=== PATIENT | female | born 1970 | race Two or more races ===

== ENCOUNTER 2016-11-29 11:13 | Inpatient (IN) | payer SELFPAY ==
[2016-11-29] MEDS ORDERED: PROMETHAZINE 25 MG/ML VIAL IV ONE (11:32)
[2016-11-29] MEDS: NS 1,000 ML IV SCH ×2 (11:40→12:11)
[2016-11-29 11:51] LABS: AUTOMATED BASOPHIL 0.3 % (0-2); AUTOMATED EOSINOPHIL 0.1 % (0-5); AUTOMATED LYMPH 9.4 % (17-44); AUTOMATED MONOCYTE 7.2 % (3-10); MPV 8.5 fL (7.4-10.4)
[2016-11-29 12:06] LABS: BLOOD UREA NITROGEN 19 MG/DL (7-17); CALC CORRECTED 9.3 MG/DL (8.4-10.2); CALCIUM 8.9 MG/DL (8.4-10.2); CALCULATED OSMOLALITY 264 MOs/Kg (270-290); CHLORIDE 93 mEq/L (98-107); GLUCOSE 219 MG/DL (70-99); SODIUM LEVEL 132 mEq/L (137-146); TOTAL PROTEIN 8.2 G/DL (6.3-8.2)
[2016-11-29 12:48] LABS: LEUKOCYTES/URINE 2+ (NEGATIVE); NITRITE/URINE NEG (NEGATIVE); RBC/URINE TNTC (0-5); URINE OCCULT BLOOD 3+ (NEG/TRACE); WBC/URINE TNTC (0-5)
--- NOTE | 2016-11-29 12:50 | EDPRACDOC ---
- General Information Information Source: Patient, Charter Representative - History of Present Illness Onset: HPI: PT PRESENTS TODAY N/V, FEVER/CHILLS AND GENERAL MALAISE X 3 DAYS. PT STATES SHE HAS BEEN CONTROLLING BODY ACHES WITH TYLENOL UNTIL TODAY. TODAY HER MALAISE/VOMITING HAS INTENSIFIED AND SHE IS UNABLE TO KEEP DOWN OTC MEDS. PT ACTIVELY VOMITING ON MY ASSESSMENT AND APPEARS ILL, BUT NON-TOXIC. Shortness of Breath: None Relevant History of: Reports: None Fever Severity/Quality: Reports: subjective Ear Symptoms: Reports: None Associated Signs & Symptoms: Reports: Fever, Nausea, Vomiting, Myalgia Oral Intake: Decreased Urinary Output: Decreased <Brittney Bain - Last Filed: 11/29/16 13:37> <Devon Owens - Last Filed: 11/29/16 14:25> - General Information Chief Complaint: Nausea,Vomiting,Diarrhea Stated Complaint: FEVER; CHILLS Time Seen by Provider: 11/29/16 11:26 Home Medications: Home Medications Glipizide 5 mg PO DAILY #90 tablet 11/08/16 Metformin HCl 500 mg PO BID #180 tab 11/08/16 Allergies/Adverse Reactions: Allergies Allergy/AdvReac Type Severity Reaction Status Date / Time Penicillins Allergy Intermediate Rash-Genera Verified 11/29/16 11:22 lized - Treatment Prior to ED Arrival Reported Medications/Treatment ROTARY CUTTER Ibuprofen/Acetaminophen (Dose/ TYLENOL X2-0000 Time) <Brittney Bain - Last Filed: 11/29/16 13:37> - Treatment Prior to ED Arrival Reported Medications/Treatment ROTARY CUTTER Ibuprofen/Acetaminophen (Dose/ TYLENOL X2-0000 Time) <Devon Owens - Last Filed: 11/29/16 14:25> ED Past Medical History - History Reviewed Yes Nurses notes reviewed and agree except as marked - Patient Medical History Psychological History: Denies: Depression, Substance Use Disorder Systemic History: Reports: Diabetes Surgical History: Reports: Other () - Social Medical History Smoking Status: Never smoker Social History: Denies: Substance Use Disorder <Brittney Bain - Last Filed: 11/29/16 13:37> EDM Review of Systems - Review of Systems ROS Negative Except as Marked: Yes All systems reviewed and were negative except as marked Constitutional: Chills, Fever, Fatigue, Loss of Appetite Ears: No Symptoms Reported Throat: No Symptoms Reported Nose: No Symptoms Reported Respiratory: No Symptoms Reported Cardiovascular: No Symptoms Reported Gastrointestinal: Nausea, Vomiting Genitourinary: No Symptoms Reported Neurological: No Symptoms Reported Musculoskeletal: No Symptoms Reported Integumentary: No Symptoms Reported <Brittney Bain - Last Filed: 11/29/16 13:37> - Physical Exam Constitutional: Alert, Distress Oriented to: Time, Person, Place Last recorded Vital Signs: Last Vital Signs Temp 98.0 F 11/29/16 11:21 Pulse 116 11/29/16 12:25 Resp 20 11/29/16 12:25 BP 117/64 11/29/16 12:25 Pulse Ox 98 11/29/16 12:25 Oxygen Pulse Oxygen Saturation 98 O2 Device Room Air Oxygen Flow Rate Fraction of Inspired Oxygen ( FIO2) - HEENT Head: Normal Eye Exam: Normal Neck: Normal, Denies Pain, Midline - Respiratory/Cardiovascular Respiratory: Normal - CTA Cardiovascular: Tachycardia - GI Palpation: Normal Tenderness: Non tender - Musculoskeletal Back: Normal Extremities: Normal - Integumentary Skin: Normal Lymphatics: Normal - Neurologic Cerebellar: Normal Mood Description: Normal Thought: Coherent Perception: Normal <Brittney Bain - Last Filed: 11/29/16 13:37> - Physical Exam Last recorded Vital Signs: Last Vital Signs Temp 101.1 F H 11/29/16 12:56 Pulse 125 H 11/29/16 12:56 Resp 20 11/29/16 12:56 BP 120/56 L 11/29/16 12:56 Pulse Ox 98 11/29/16 12:56 Oxygen Pulse Oxygen Saturation 98 O2 Device Room Air Oxygen Flow Rate Fraction of Inspired Oxygen ( FIO2) <Devon Owens - Last Filed: 11/29/16 14:25> - Re-evaluation Re-evaluation 1 Re-evaluation Time: 13:37 PT CONTINUES TO FEEL VERY ILL; PT IS SHAKING; PT WAS RECENTLY ADMITTED TO HOSPITAL FOR PYELONEPHRITIS. - Results 11/29/16 11:42 11/29/16 11:42 WBC 11.9 xk/uL (3.8-10.8) H 11/29/16 11:42 RBC 3.20 xM/uL (4.20-5.40) L 11/29/16 11:42 Hgb 10.0 g/dL (12.0-16.0) L 11/29/16 11:42 Hct 28.9 % (36-47) L 11/29/16 11:42 MCV 90 fL (81-99) 11/29/16 11:42 MCH 31.3 pg (27-32) 11/29/16 11:42 MCHC 34.7 g/dl (33-36) 11/29/16 11:42 RDW 13.7 % (11.5-14.5) 11/29/16 11:42 Plt Count 174 xk/uL (130-400) 11/29/16 11:42 MPV 8.5 fL (7.4-10.4) 11/29/16 11:42 Neut % (Auto) 83.0 % (45-76) H 11/29/16 11:42 Lymph % (Auto) 9.4 % (17-44) L 11/29/16 11:42 [place] % (Auto) 7.2 % (3-10) 11/29/16 11:42 Eos % (Auto) 0.1 % (0-5) 11/29/16 11:42 Baso % (Auto) 0.3 % (0-2) 11/29/16 11:42 Absolute Neuts (auto) 9.88 xk/uL (1.7-8.2) H 11/29/16 11:42 Absolute Lymphs (auto) 1.07 xk/uL (0.65-4.75) 11/29/16 11:42 Sodium 132 mEq/L (137-146) L 11/29/16 11:42 Potassium 4.2 mEq/L (3.5-5.1) 11/29/16 11:42 Chloride 93 mEq/L (98-107) L 11/29/16 11:42 Carbon Dioxide 26 mMOL/L (22-33) 11/29/16 11:42 Anion Gap 17 mEq/L (8-16) H 11/29/16 11:42 BUN 19 MG/DL (7-17) H 11/29/16 11:42 Creatinine 0.80 MG/DL (0.52-1.04) 11/29/16 11:42 Estimated GFR (MDRD) > 60 mL/min (>=60) 11/29/16 11:42 Glucose 219 MG/DL (70-99) H 11/29/16 11:42 POC Capillary Glucose 197 MG/DL (70-99) H 11/29/16 11:20 Calculated Osmolality 264 MOs/Kg (270-290) L 11/29/16 11:42 Calcium 8.9 MG/DL (8.4-10.2) 11/29/16 11:42 Corrected Calcium 9.3 MG/DL (8.4-10.2) 11/29/16 11:42 Total Bilirubin 0.8 MG/DL (0.2-1.3) 11/29/16 11:42 AST 24 IU/L (14-36) 11/29/16 11:42 ALT 26 IU/L (9-52) 11/29/16 11:42 Alkaline Phosphatase 202 IU/L (38-126) H 11/29/16 11:42 Total Protein 8.2 G/DL (6.3-8.2) 11/29/16 11:42 Albumin 3.6 G/DL (3.5-5.0) 11/29/16 11:42 Lab Results 11/29/16 11/29/16 11/29/16 11:42 11:42 11:20 WBC 11.9 H RBC 3.20 L Hgb 10.0 L Hct 28.9 L MCV 90 MCH 31.3 MCHC 34.7 RDW 13.7 Plt Count 174 MPV 8.5 Neut % (Auto) 83.0 H Lymph % (Auto) 9.4 L [place] % (Auto) 7.2 Eos % (Auto) 0.1 Baso % (Auto) 0.3 Absolute Neuts (auto) 9.88 H Absolute Lymphs (auto) 1.07 Sodium 132 L Potassium 4.2 Chloride 93 L Carbon Dioxide 26 Anion Gap 17 H BUN 19 H Creatinine 0.80 Estimated GFR (MDRD) > 60 Glucose 219 H POC Capillary Glucose 197 H Calculated Osmolality 264 L Calcium 8.9 Corrected Calcium 9.3 Total Bilirubin 0.8 AST 24 ALT 26 Alkaline Phosphatase 202 H Total Protein 8.2 Albumin 3.6 <Brittney Bain - Last Filed: 11/29/16 13:37> - Results 11/29/16 11:42 11/29/16 11:42 WBC 11.9 xk/uL (3.8-10.8) H 11/29/16 11:42 RBC 3.20 xM/uL (4.20-5.40) L 11/29/16 11:42 Hgb 10.0 g/dL (12.0-16.0) L 11/29/16 11:42 Hct 28.9 % (36-47) L 11/29/16 11:42 MCV 90 fL (81-99) 11/29/16 11:42 MCH 31.3 pg (27-32) 11/29/16 11:42 MCHC 34.7 g/dl (33-36) 11/29/16 11:42 RDW 13.7 % (11.5-14.5) 11/29/16 11:42 Plt Count 174 xk/uL (130-400) 11/29/16 11:42 MPV 8.5 fL (7.4-10.4) 11/29/16 11:42 Neut % (Auto) 83.0 % (45-76) H 11/29/16 11:42 Lymph % (Auto) 9.4 % (17-44) L 11/29/16 11:42 [place] % (Auto) 7.2 % (3-10) 11/29/16 11:42 Eos % (Auto) 0.1 % (0-5) 11/29/16 11:42 Baso % (Auto) 0.3 % (0-2) 11/29/16 11:42 Absolute Neuts (auto) 9.88 xk/uL (1.7-8.2) H 11/29/16 11:42 Absolute Lymphs (auto) 1.07 xk/uL (0.65-4.75) 11/29/16 11:42 Sodium 132 mEq/L (137-146) L 11/29/16 11:42 Potassium 4.2 mEq/L (3.5-5.1) 11/29/16 11:42 Chloride 93 mEq/L (98-107) L 11/29/16 11:42 Carbon Dioxide 26 mMOL/L (22-33) 11/29/16 11:42 Anion Gap 17 mEq/L (8-16) H 11/29/16 11:42 BUN 19 MG/DL (7-17) H 11/29/16 11:42 Creatinine 0.80 MG/DL (0.52-1.04) 11/29/16 11:42 Estimated GFR (MDRD) > 60 mL/min (>=60) 11/29/16 11:42 Glucose 219 MG/DL (70-99) H 11/29/16 11:42 POC Capillary Glucose 197 MG/DL (70-99) H 11/29/16 11:20 Calculated Osmolality 264 MOs/Kg (270-290) L 11/29/16 11:42 Calcium 8.9 MG/DL (8.4-10.2) 11/29/16 11:42 Corrected Calcium 9.3 MG/DL (8.4-10.2) 11/29/16 11:42 Total Bilirubin 0.8 MG/DL (0.2-1.3) 11/29/16 11:42 AST 24 IU/L (14-36) 11/29/16 11:42 ALT 26 IU/L (9-52) 11/29/16 11:42 Alkaline Phosphatase 202 IU/L (38-126) H 11/29/16 11:42 Total Protein 8.2 G/DL (6.3-8.2) 11/29/16 11:42 Albumin 3.6 G/DL (3.5-5.0) 11/29/16 11:42 Urine Color Yellow 11/29/16 12:22 Urine Clarity Sl cldy 11/29/16 12:22 Urine pH 7.0 (5.0-8.0) 11/29/16 12:22 Ur Specific [place] 1.005 (1.003-1.035) 11/29/16 12:22 Urine Protein 2+ (NEG/TRACE) H 11/29/16 12:22 Urine Glucose (UA) Trace (NEGATIVE) 11/29/16 12:22 Urine Ketones Neg (NEGATIVE) 11/29/16 12:22 Urine Occult Blood 3+ (NEG/TRACE) H 11/29/16 12:22 Urine Nitrite Neg (NEGATIVE) 11/29/16 12:22 Urine Bilirubin Neg (NEGATIVE) 11/29/16 12:22 Urine Urobilinogen <2.0 MG/DL (0-1) 11/29/16 12:22 Ur Leukocyte Esterase 2+ (NEGATIVE) H 11/29/16 12:22 Urine RBC Tntc (0-5) H 11/29/16 12:22 Urine WBC Tntc (0-5) H 11/29/16 12:22 Urine WBC Clumps Present (NONE) H 11/29/16 12:22 Ur Epithelial Cells 3+ 11/29/16 12:22 Urine Bacteria 3+ (NEG/FEW) H 11/29/16 12:22 Microbiology 11/29/16 12:25 Influenza Type A Antigen Screen - Final N/P - Naso/Pharyngeal NEGATIVE Please note: A NEGATIVE result does not exclude an influenza virus infection. It is a presumptive result and, if required, confirmation should be done using either a virus culture or an FDA-cleared influenza A&B molecular assay. ("NORMAL" value = "NEGATIVE".) Influenza Type B Antigen Screen - Final NEGATIVE Please note: A NEGATIVE result does not exclude an influenza virus infection. It is a presumptive result and, if required, confirmation should be done using either a virus culture or an FDA-cleared influenza A&B molecular assay. ("NORMAL" value = "NEGATIVE".) Lab Results 11/29/16 11/29/16 11/29/16 12:22 11:42 11:42 WBC 11.9 H RBC 3.20 L Hgb 10.0 L Hct 28.9 L MCV 90 MCH 31.3 MCHC 34.7 RDW 13.7 Plt Count 174 MPV 8.5 Neut % (Auto) 83.0 H Lymph % (Auto) 9.4 L [place] % (Auto) 7.2 Eos % (Auto) 0.1 Baso % (Auto) 0.3 Absolute Neuts (auto) 9.88 H Absolute Lymphs (auto) 1.07 Sodium 132 L Potassium 4.2 Chloride 93 L Carbon Dioxide 26 Anion Gap 17 H BUN 19 H Creatinine 0.80 Estimated GFR (MDRD) > 60 Glucose 219 H POC Capillary Glucose Calculated Osmolality 264 L Calcium 8.9 Corrected Calcium 9.3 Total Bilirubin 0.8 AST 24 ALT 26 Alkaline Phosphatase 202 H Total Protein 8.2 Albumin 3.6 Urine Color Yellow Urine Clarity Sl cldy Urine pH 7.0 Ur Specific Edgar 1.005 Urine Protein 2+ H Urine Glucose (UA) Trace Urine Ketones Neg Urine Occult Blood 3+ H Urine Nitrite Neg Urine Bilirubin Neg Urine Urobilinogen <2.0 Ur Leukocyte Esterase 2+ H Urine RBC Tntc H Urine WBC Tntc H Urine WBC Clumps Present H Ur Epithelial Cells 3+ Urine Bacteria 3+ H 11/29/16 11:20 WBC RBC Hgb Hct MCV MCH MCHC RDW Plt Count MPV Neut % (Auto) Lymph % (Auto) [place] % (Auto) Eos % (Auto) Baso % (Auto) Absolute Neuts (auto) Absolute Lymphs (auto) Sodium Potassium Chloride Carbon Dioxide Anion Gap BUN Creatinine Estimated GFR (MDRD) Glucose POC Capillary Glucose 197 H Calculated Osmolality Calcium Corrected Calcium Total Bilirubin AST ALT Alkaline Phosphatase Total Protein Albumin Urine Color Urine Clarity Urine pH Ur Specific Edgar Urine Protein Urine Glucose (UA) Urine Ketones Urine Occult Blood Urine Nitrite Urine Bilirubin Urine Urobilinogen Ur Leukocyte Esterase Urine RBC Urine WBC Urine WBC Clumps Ur Epithelial Cells Urine Bacteria <Devon Owens - Last Filed: 11/29/16 14:25> - Departure Disposition: Admit IP To This Hospital Education/Counseling Given To: Patient, Family Member Education/Counseling Given Regarding: Diagnosis, Treatment, Follow Up Decision to Admit Time: 13:38 Decision to admit date: 11/29/16 Decision to admit: from ED <Brittney Bain - Last Filed: 11/29/16 13:37> - Physician Consulted Hospitalist Time Called: 13:40 Provider Called: Oswaldo Wise Time Acquisition Professional Returned Call: 13:40 <Devon Owens - Last Filed: 11/29/16 14:25> - Departure Condition: Fair Final Diagnosis: Pyelonephritis, Hyponatremia Nausea & vomiting Qualifiers: Vomiting type: unspecified Vomiting Intractability: non-intractable Qualified Code(s): R11.2 - Nausea with vomiting, unspecified Instructions: Acute Nausea and Vomiting (ED)
[2016-11-29] MEDS ORDERED: NS 1,000 ML IV ONE (12:51)
[2016-11-29] MEDS ORDERED: CEFTRIAXONE 1 GM in D5W 100 ML IV ONE (13:06)
[2016-11-29] MEDS ORDERED: HYDROmorphone 1 MG INJECTION IV ONE (13:13)
[2016-11-29] MEDS ORDERED: KETOROLAC TROMETH 30 MG/ML VIAL IV ONE (13:13)
[2016-11-29] MEDS ORDERED: Albuterol/Ipratropium Neb 3 ML NEB NEB PRN (14:00)
[2016-11-29] MEDS ORDERED: SENNA CONCENTRATE TAB PO PRN (14:00)
[2016-11-29] MEDS ORDERED: DEXTROSE 25 GM/50 ML PFS IV PRN (14:00)
[2016-11-29] MEDS ORDERED: GLUCOSE (ORAL GEL) 15 GM TUBE PO PRN (14:00)
[2016-11-29] MEDS ORDERED: PROMETHAZINE 25 MG/ML VIAL IV PRN (14:00)
[2016-11-29] MEDS ORDERED: BISACODYL 10 MG SUPP PR PRN (14:00)
[2016-11-29] MEDS ORDERED: ACETAMINOPHEN 325 MG SUPP PR PRN (14:00)
[2016-11-29] MEDS ORDERED: GLUCAGON 1 MG VIAL SQ PRN (14:00)
[2016-11-29] MEDS ORDERED: ONDANSETRON HCL 4 MG/2 ML VIAL IV PRN (14:00)
[2016-11-29] MEDS ORDERED: TUSSIONEX 5 ML ORAL SYRINGE PO PRN (14:00)
[2016-11-29] MEDS ORDERED: OXYCODONE HCL 5 MG TABLET PO PRN (14:00)
[2016-11-29] MEDS ORDERED: TEMAZEPAM 15 MG CAP PO PRN (14:00)
[2016-11-29] MEDS ORDERED: BENZONATATE 100 MG PERLES PO PRN (14:00)
[2016-11-29] MEDS: ACETAMINOPHEN 325 MG/TAB TABLET PO PRN (14:53)
--- NOTE | 2016-11-29 15:27 | HISTPHYS ---
- Chief Complaint Nausea vomiting fever chills over the past 3 days. - History of Present Illness Patient is a 46-year-old female speaks no Indonesian who comes into the emergency room today complaining of nausea vomiting fever chills generalize malaise aching all over for the past 3 days. She apparently had a urinary tract infection last month that was treated with IV and p.o. antibiotics. She took her p.o. antibiotics for the 3 days following her hospitalization. She asked me if this infection is related to the previous 1 and I indicated he could be but we need to wait for the culture results to appear and she may need a longer course of IV therapy should that be the case. She specifically denied any flank pain dysuria or polyuria. She has a history of poorly controlled diabetes mellitus by virtue of her elevated glycohemoglobin of 12.8. However reviewing her previous glycohemoglobin mid October was greater than 14. - Medical History Cardiac History: Reports: No Significant History Respiratory History: Reports: No Significant History GI/ History: Reports: Renal Disease, Urinary Tract Infection (Pyelonephritis 3 weeks ago) Systemic History: Reports: Diabetes (Poorly-controlled dm with hgba1c 12.8 which is lower than previous month) Neurological History: Reports: No Significant History Psychological History: Denies: Depression, Substance Use Disorder - Surgical History Reports: Other () - Medictions/Allergies Allergies Penicillins Allergy (Intermediate, Verified 11/29/16 11:22) Rash-Generalized Current Medication List: Reviewed Home Medications Glipizide 5 mg PO DAILY #90 tablet 11/08/16 Metformin HCl 500 mg PO BID #180 tab 11/08/16 - Family History Reports: Diabetes - Social History Lives: Other Smoking Status: Never smoker Social History: Denies: Alcohol Use, Substance Use Disorder - Review of Systems Constitutional: Chills, Fever, Fatigue, Loss of Appetite, Weakness Eyes: No Symptoms Reported (No blurry vision, visual changes, eye pain, or eye redness.) Ears: No Symptoms Reported (No ear pain or discharge) Nose: No Symptoms Reported (No nasal discharge/congestion or bleeding) Mouth: No Symptoms Reported (No oropharyngeal lesions or erythema) Throat/Neck: No Symptoms Reported (No throat pain or swelling.No oropharyngeal lesions or erythema.) Respiratory: No Symptoms Reported (No cough, wheezing, or shortness of breath.) Cardiovascular: No Symptoms Reported (No chest pain or palpitations.) Gastrointestinal: Nausea, Vomiting Genitourinary: negative: Dysuria, Discharge, Frequency Neurological: No Symptoms Reported (No headache, dizziness, seizures, or focal weakness.) Musculoskeletal:: Muscle Pain, Other (Generalized aching in all extremities) Integumentary: No Symptoms Reported (no rashes or lesions) Allergic/Immunologic: No Symptoms Reported (no rashes or lesions) Hematologic: No Symptoms Reported (No chronic anemia, bleeding, or easy bruising.), Other (Lymphatics- no lymph node swelling or pain.) Endocrine: Diabetes Psychiatric: No Symptoms Reported (Fully oriented, with normal and appropriate affect.) - Physical Exam Vital Signs: Initial Vitals Temperature 98.0 F 11/29/16 11:21 Pulse Rate 110 11/29/16 11:21 Respiratory Rate 20 11/29/16 11:21 Blood Pressure 103/54 L 11/29/16 11:21 Pulse Oxygen Saturation 96 11/29/16 11:21 Constitutional: Alert (Awake, Fully oriented. Normal and appropriate affect.Well appearing. Well nourished.), No apparent distress Oriented to: Time, Person, Place - HEENT Head: Normal (normocephalic, atraumatic.), Other (No cervical lymphadenopathy. No supraclavicular lymphadenopathy. Neck: No palpable mass, supple , trachea midline.) Eye: Normal (pupils equal, reactive to light, and round; EOMI, Sclera white) Oropharynx: Membranes Dry, Other (Poor dentition) ENT EAC: Normal (No oropharyngeal lesions or erythema. Mucous membranes are dry. ) TMJ: Normal Nose: No Symptoms Reported (septum midline, Nares patent, without discharge or bleeding.) Respiratory: Normal - CTA (Clear to auscultation bilaterally. No wheezing, rales , rhonchi. Chest wall movements are symmetric. No use of accessory muscles to breathe.) Cardiovascular: Normal (RRR , Normal S1, S2. No murmurs, rubs, or gallops. PMI non-displaced. Carotids: no carotid bruits. No bradycardia or tachycardia. DP pulses 2+ bilaterally.) - GI Auscultation: Normal (normal active sounds) Palpation: Normal (Soft,non distended,nontender. No hepatosplenomegaly.) Tenderness: Non tender (No rebound or guarding) Landry's Sign: Negative - Musculoskeletal Back: Normal (Non-Tender). negative: CVA Tenderness Extremities: Normal (Normal tone, DP pulses 2+ bilaterally, No cyanosis or edema bilaterally, FROM bilaterally.) Spine: non-tender, normal alignment, normal inspection. negative: muscle spasm - Integumentary Skin: Normal (Clean, dry, and intact. No rashes. No lesions.) Lymphatics: Normal (No cervical lymphadenopathy. No supraclavicular lymphadenopathy.) - Neurologic Memory Impaired: Normal Motor Function: Other (Generalized weakness) Cranial Nerve: Normal (CN II-XII intact sensation, strength 5/5) Cerebellar: Normal. negative: Ataxia, Past-Pointing, Tremor Mood Description: Other (Depressed quite) Thought: Coherent Perception: Normal (Normal and appropriate affect.) - Focused CV Perfusion Exam Vital Signs: Last Vital Signs Temp 102.9 F H 11/29/16 14:39 Pulse 120 H 11/29/16 14:39 Resp 20 11/29/16 14:39 BP 89/49 L 11/29/16 14:39 Pulse Ox 91 11/29/16 14:39 - Lab Results 11/29/16 11:42 11/29/16 11:42 Laboratory Results - last 24 hr 11/29/16 11/29/16 11/29/16 11:20 11:42 11:42 WBC 11.9 H RBC 3.20 L Hgb 10.0 L Hct 28.9 L MCV 90 MCH 31.3 MCHC 34.7 RDW 13.7 Plt Count 174 MPV 8.5 Neut % (Auto) 83.0 H Lymph % (Auto) 9.4 L [place] % (Auto) 7.2 Eos % (Auto) 0.1 Baso % (Auto) 0.3 Absolute Neuts (auto) 9.88 H Absolute Lymphs (auto) 1.07 Sodium 132 L Potassium 4.2 Chloride 93 L Carbon Dioxide 26 Anion Gap 17 H BUN 19 H Creatinine 0.80 Estimated GFR (MDRD) > 60 Glucose 219 H POC Capillary Glucose 197 H Hemoglobin A1c Calculated Osmolality 264 L Calcium 8.9 Corrected Calcium 9.3 Total Bilirubin 0.8 AST 24 ALT 26 Alkaline Phosphatase 202 H Total Protein 8.2 Albumin 3.6 TSH Urine Color Urine Clarity Urine pH Ur Specific [place] Urine Protein Urine Glucose (UA) Urine Ketones Urine Occult Blood Urine Nitrite Urine Bilirubin Urine Urobilinogen Ur Leukocyte Esterase Urine RBC Urine WBC Urine WBC Clumps Ur Epithelial Cells Urine Bacteria 11/29/16 11/29/16 11/29/16 11:42 11:42 12:22 WBC RBC Hgb Hct MCV MCH MCHC RDW Plt Count MPV Neut % (Auto) Lymph % (Auto) [place] % (Auto) Eos % (Auto) Baso % (Auto) Absolute Neuts (auto) Absolute Lymphs (auto) Sodium Potassium Chloride Carbon Dioxide Anion Gap BUN Creatinine Estimated GFR (MDRD) Glucose POC Capillary Glucose Hemoglobin A1c 12.8 H Calculated Osmolality Calcium Corrected Calcium Total Bilirubin AST ALT Alkaline Phosphatase Total Protein Albumin TSH 3.98 Urine Color Yellow Urine Clarity Sl cldy Urine pH 7.0 Ur Specific [place] 1.005 Urine Protein 2+ H Urine Glucose (UA) Trace Urine Ketones Neg Urine Occult Blood 3+ H Urine Nitrite Neg Urine Bilirubin Neg Urine Urobilinogen <2.0 Ur Leukocyte Esterase 2+ H Urine RBC Tntc H Urine WBC Tntc H Urine WBC Clumps Present H Ur Epithelial Cells 3+ Urine Bacteria 3+ H 11/29/16 16:51 WBC RBC Hgb Hct MCV MCH MCHC RDW Plt Count MPV Neut % (Auto) Lymph % (Auto) [place] % (Auto) Eos % (Auto) Baso % (Auto) Absolute Neuts (auto) Absolute Lymphs (auto) Sodium Potassium Chloride Carbon Dioxide Anion Gap BUN Creatinine Estimated GFR (MDRD) Glucose POC Capillary Glucose 212 H Hemoglobin A1c Calculated Osmolality Calcium Corrected Calcium Total Bilirubin AST ALT Alkaline Phosphatase Total Protein Albumin TSH Urine Color Urine Clarity Urine pH Ur Specific [place] Urine Protein Urine Glucose (UA) Urine Ketones Urine Occult Blood Urine Nitrite Urine Bilirubin Urine Urobilinogen Ur Leukocyte Esterase Urine RBC Urine WBC Urine WBC Clumps Ur Epithelial Cells Urine Bacteria - Assessment (1) Pyelonephritis N12 - TUBULO-INTERSTITIAL NEPHRITIS, NOT SPCF ACUTE OR CHRONIC Acute Present on Admission: Yes Admitted to the hospital for further evaluation and treatment of her pyelonephritis likely with her severe gastroenteritis unable to take any oral antibiotics. Apparently she had pyelonephritis last month that was treated but failed to improve. Cultures are obtained for comparison and likely will need a longer course of therapy for the pyelonephritis. (2) Poorly controlled diabetes mellitus E11.65 - TYPE 2 DIABETES MELLITUS WITH HYPERGLYCEMIA Acute Present on Admission: Yes Her glycohemoglobin is dropped from 14-12.8 just over the past 3 weeks as she has been started on oral hypoglycemics. Would like to put her on insulin at least temporarily to give her pancreas a break. (3) Nausea & vomiting R11.2 - NAUSEA WITH VOMITING, UNSPECIFIED Acute Qualifiers: Vomiting type: unspecified Vomiting Intractability: non-intractable Qualified Code(s): R11.2 - Nausea with vomiting, unspecified Use p.r.n. IV Zofran and/or Phenergan as needed for control nausea and vomiting. (4) Anemia D64.9 - ANEMIA, UNSPECIFIED Acute Present on Admission: Yes Qualifiers: Anemia type: other cause Other causes of anemia: chronic disease, other Qualified Code(s): D63.8 - Anemia in other chronic diseases classified elsewhere Anemia likely related to chronic diabetes renal insufficiency and poor nutrition. Case Care Discussed with: Patient, Nursing Staff, Resource Management Total Time: 79 minutes Critical Care: No Code: [id number]
[2016-11-29] MEDS: Levofloxacin 750 mg/150 ml D5W 750 MG/150 ML RTU IV SCH (16:12)
[2016-11-29] MEDS: ENOXAPARIN 40 MG/0.4 ML PFS SQ SCH (17:13)
[2016-11-29] MEDS: REGULAR INSULIN 100 UNITS/ML - 3 ML VIAL SQ SCH (17:14)
[2016-11-29] MEDS ORDERED: Vaccine Screening Complete SCH (18:00)
[2016-11-29] MEDS ORDERED: NOVOLOG 70/30 MIX 100 UNITS/ML PEN SQ SCH (21:00)
[2016-11-29] MEDS: PROBIOTIC BLEND TAB PO SCH (21:57)
[2016-11-29] MEDS: GLIPIZIDE 5 MG TAB PO SCH (21:57)
--- NOTE | 2016-11-29 22:48 | DIRPT ---
CLINICAL DATA: History of pyelonephritis. Evaluate for hydronephrosis. EXAM: RENAL / URINARY TRACT ULTRASOUND COMPLETE COMPARISON: 11/05/2016 FINDINGS: Right Kidney: Length: 12.8 cm.. Echogenicity within normal limits. No mass or hydronephrosis visualized. Left Kidney: Length: 12.3 cm.. Echogenicity within normal limits. Pelvocaliectasis noted. Bladder: Appears normal for degree of bladder distention. IMPRESSION: 1. Pelvocaliectasis noted on the left. 2. Right kidney appears normal. Electronically Signed By: Mylene Diaz M.D. On: 11/29/2016 22:45
[2016-11-30 05:16] VITALS: BMI 22.1
[2016-11-30] MEDS: ACETAMINOPHEN 325 MG/TAB TABLET PO PRN ×2 (05:27→21:32)
[2016-11-30] MEDS: MetFORMIN 500 MG IMMED RELEASE TAB PO SCH ×2 (05:28→17:02)
[2016-11-30] MEDS: GLIPIZIDE 5 MG TAB PO SCH (05:29)
[2016-11-30] MEDS: REGULAR INSULIN 100 UNITS/ML - 3 ML VIAL SQ SCH ×2 (06:15→17:03)
[2016-11-30] MEDS ORDERED: NOVOLOG 70/30 MIX 100 UNITS/ML PEN SQ SCH (07:00)
[2016-11-30 07:30] LABS: MPV 8.6 fL (7.4-10.4)
--- NOTE | 2016-11-30 07:56 | GENMEDPROG ---
Chief Complaint: States she is feeling somewhat better denying any pain in her back her abdomen no more fever chills. Wants to know if this is same organism that caused her issues in mid part of last month and I indicated it probably was and will need a longer period of time to completely eradicate. Notes Reviewed: Yes Events from last night noted and discussed with Clinical Staff Current Medication List: Reviewed DVT Prophylaxis: Yes - Physical Examination Vital Signs and I&O: Last Vital Signs Temp 98.7 F 11/30/16 06:18 Pulse 90 11/30/16 05:16 Resp 18 11/30/16 05:16 BP 112/62 11/30/16 05:16 Pulse Ox 96 11/30/16 05:16 Oxygen Pulse Oxygen Saturation 96 O2 Device Room Air Oxygen Flow Rate Fraction of Inspired Oxygen ( FIO2) Intake & Output 11/27/16 11/28/16 11/29/16 11/30/16 23:59 23:59 23:59 23:59 Intake Total 2255 Output Total 300 450 Balance 1955 -450 Patient's weight 52.798 kg 53.184 kg General: Alert, Oriented x3, No acute distress HEENT: Normal (Normocephalic, atraumatic;EOMI.Sclera white, Nares patent, without discharge or bleeding. No oropharyngeal lesions or erythema. Mucous membranes are dry.) Neck: Non-tender, Full range of motion, Normal Trachea alignment, Normal inspection (No cervical lymphadenopathy. No supraclavicular lymphadenopathy.), No Masses palpable, Supple Lymphatics: Normal (No cervical lymphadenopathy. No supraclavicular lymphadenopathy.) Respiratory: Normal - CTA (Clear to auscultation bilaterally. No wheezing, rales , rhonchi. Chest wall movements are symmetric. No use of accessory muscles to breathe.) Cardiovascular: Regular rate and rhythm (No bradycardia or tachycardia), Normal S1, No Gallops,Rubs/Murmurs, Normal S2, Good Pedal Pulses (DP pulses 2+ bilaterally) GI: Normal bowel sounds (normal active sounds), Soft (non-distended), Non tender , No hepatospenomegaly, No masses Extremities/Musculoskeletal: Normal pulses (DP pulses 2+ bilaterally) Skin: Warm,Dry and Intact, No rashes, No significant lesion Neurological: Normal speech, Normal tone, Cranial nerves 3-12 NL ( 2-12 grossly intact.) Psych/Mental Status: Appropriate, Normal Affect Lab/DI/Studies Reviewed: 11/30/16 06:45 11/30/16 06:45 Laboratory Results - last 24 hr 11/29/16 11/29/16 11/30/16 11:42 16:51 05:20 WBC RBC Hgb Hct MCV MCH MCHC RDW Plt Count MPV Sodium Potassium Chloride Carbon Dioxide Anion Gap BUN Creatinine Estimated GFR (MDRD) Glucose POC Capillary Glucose 212 H 121 H Calculated Osmolality Calcium TSH 3.98 11/30/16 11/30/16 06:45 06:45 WBC 8.9 RBC 2.61 L Hgb 8.1 L D Hct 24.0 L MCV 92 MCH 31.0 MCHC 33.8 RDW 13.7 Plt Count 141 MPV 8.6 Sodium 132 L Potassium 3.9 Chloride 99 Carbon Dioxide 24 Anion Gap 13 BUN 18 H Creatinine 0.80 Estimated GFR (MDRD) > 60 Glucose 94 POC Capillary Glucose Calculated Osmolality 257 L Calcium 7.7 L TSH - Assessment (1) Pyelonephritis Acute N12 - TUBULO-INTERSTITIAL NEPHRITIS, NOT SPCF ACUTE OR CHRONIC Comment/Plan: Admitted to the hospital for further evaluation and treatment of her pyelonephritis likely with her severe gastroenteritis unable to take any oral antibiotics. Apparently she had a complicated urinary tract infection last month that was treated but failed to improve. Cultures are obtained for comparison and likely will need a longer course of therapy for this infection. (2) Anemia Acute D64.9 - ANEMIA, UNSPECIFIED Qualifiers: Anemia type: other cause Other causes of anemia: chronic disease, other Qualified Code(s): D63.8 - Anemia in other chronic diseases classified elsewhere Comment/Plan: Anemia likely related to chronic diabetes renal insufficiency and poor nutrition. Noticeable drop in 24 hours will recheck. (3) Poorly controlled diabetes mellitus Acute E11.65 - TYPE 2 DIABETES MELLITUS WITH HYPERGLYCEMIA Comment/Plan: Her glycohemoglobin is dropped from 14-12.8 just over the past 3 weeks as she has been started on oral hypoglycemics. I have started her on 16 units 70/30 insulin twice daily, at least temporarily, to give her pancreas a break. (4) Nausea & vomiting Acute R11.2 - NAUSEA WITH VOMITING, UNSPECIFIED Qualifiers: Vomiting type: unspecified Vomiting Intractability: non-intractable Qualified Code(s): R11.2 - Nausea with vomiting, unspecified Comment/Plan: Use p.r.n. IV Phenergan appears to be improving. Case Care Discussed with: Patient, Nursing Staff Education/Counseling Given To: Patient Education/Counseling Given Regarding: Diagnosis Total Time: 36 minutes Critical Care: No Code: 69015 (12+)
[2016-11-30 08:10] LABS: BLOOD UREA NITROGEN 18 MG/DL (7-17); CALCIUM 7.7 MG/DL (8.4-10.2); CALCULATED OSMOLALITY 257 MOs/Kg (270-290); CHLORIDE 99 mEq/L (98-107); GLUCOSE 94 MG/DL (70-99); SODIUM LEVEL 132 mEq/L (137-146)
[2016-11-30] MEDS: CEFTRIAXONE 1 GM in D5W 100 ML IV SCH (11:01)
[2016-11-30] MEDS: PROBIOTIC BLEND TAB PO SCH ×2 (11:01→17:02)
[2016-11-30] MEDS: Levofloxacin 750 mg/150 ml D5W 750 MG/150 ML RTU IV SCH (15:19)
[2016-11-30] MEDS: NOVOLOG 70/30 MIX 100 UNITS/ML PEN SQ SCH (17:03)
[2016-11-30] MEDS: ENOXAPARIN 40 MG/0.4 ML PFS SQ SCH (17:03)
[2016-12-01] MEDS: REGULAR INSULIN 100 UNITS/ML - 3 ML VIAL SQ SCH ×2 (05:59→17:55)
[2016-12-01] MEDS: MetFORMIN 500 MG IMMED RELEASE TAB PO SCH ×2 (06:00→17:54)
[2016-12-01] MEDS: GLIPIZIDE 5 MG TAB PO SCH (06:01)
[2016-12-01] MEDS: NOVOLOG 70/30 MIX 100 UNITS/ML PEN SQ SCH ×2 (06:02→17:55)
[2016-12-01 07:52] LABS: MPV 8.2 fL (7.4-10.4)
[2016-12-01] MEDS: CEFTRIAXONE 1 GM in D5W 100 ML IV SCH (11:17)
[2016-12-01] MEDS: PROBIOTIC BLEND TAB PO SCH ×2 (11:17→17:55)
--- NOTE | 2016-12-01 12:50 | GENMEDPROG ---
Chief Complaint: Feels ok. Minimal abdominal pain. Infection appears to be improving Notes Reviewed: Yes Events from last night noted and discussed with Clinical Staff Current Medication List: Reviewed Currently: Reports: Abdominal Pain. Denies: Cough, Wheezing, GOODMAN, SOB, Nausea and Vomiting DVT Prophylaxis: Yes - Physical Examination Vital Signs and I&O: Last Vital Signs Temp 98.6 F 12/01/16 06:29 Pulse 87 12/01/16 06:29 Resp 18 12/01/16 06:29 BP 123/65 12/01/16 06:29 Pulse Ox 96 12/01/16 06:29 Oxygen Pulse Oxygen Saturation 96 O2 Device Room Air Oxygen Flow Rate Fraction of Inspired Oxygen ( FIO2) Intake & Output 11/28/16 11/29/16 11/30/16 12/01/16 23:59 23:59 23:59 23:59 Intake Total 2255 779 Output Total 300 1850 1700 Balance 1954 1 -0 Patient's weight 52.798 kg 53.184 kg 53.609 kg General: Alert, Oriented x3, No acute distress, Well nourished. negative: Well appearing HEENT: Normal (Normocephalic, atraumatic;EOMI.Sclera white, Nares patent, without discharge or bleeding. No oropharyngeal lesions or erythema. Mucous membranes are dry.), PERRLA, EOMI Neck: Non-tender, Full range of motion, Normal Trachea alignment, Normal inspection (No cervical lymphadenopathy. No supraclavicular lymphadenopathy.), No Masses palpable, Supple Lymphatics: Normal (No cervical lymphadenopathy. No supraclavicular lymphadenopathy.) Respiratory: Normal - CTA (Clear to auscultation bilaterally. No wheezing, rales , rhonchi. Chest wall movements are symmetric. No use of accessory muscles to breathe.) Cardiovascular: Regular rate and rhythm (No bradycardia or tachycardia), Normal S1, No Gallops,Rubs/Murmurs, Normal S2, Good Pedal Pulses (DP pulses 2+ bilaterally) GI: Normal bowel sounds (normal active sounds), Soft (non-distended), Non tender , No hepatospenomegaly, No masses Extremities/Musculoskeletal: Normal pulses (DP pulses 2+ bilaterally). negative : Tenderness, Swelling, Edema Skin: Warm,Dry and Intact, No rashes, No significant lesion Neurological: Normal speech, Normal tone, Cranial nerves 3-12 NL ( 2-12 grossly intact.) Psych/Mental Status: Appropriate, Normal Affect, Cooperative Lab/DI/Studies Reviewed: Laboratory Results - last 24 hr 11/30/16 12/01/16 12/01/16 16:55 05:08 06:48 WBC 7.7 RBC 2.75 L Hgb 8.6 L Hct 25.0 L MCV 91 MCH 31.1 MCHC 34.2 RDW 14.0 Plt Count 161 MPV 8.2 POC Capillary Glucose 157 H 137 H - Assessment (1) Pyelonephritis Acute N12 - TUBULO-INTERSTITIAL NEPHRITIS, NOT SPCF ACUTE OR CHRONIC Comment/Plan: Due to E coli. Continue IV antibiotics and supportive care. Stressed diabetes control and healthier lifestyle. (2) Nausea & vomiting Acute R11.2 - NAUSEA WITH VOMITING, UNSPECIFIED Qualifiers: Vomiting type: unspecified Vomiting Intractability: non-intractable Qualified Code(s): R11.2 - Nausea with vomiting, unspecified Comment/Plan: Nausea has resolved. Continue p.r.n. anti emetics. (3) Anemia Acute D64.9 - ANEMIA, UNSPECIFIED Qualifiers: Anemia type: other cause Other causes of anemia: chronic disease, other Qualified Code(s): D63.8 - Anemia in other chronic diseases classified elsewhere Comment/Plan: Monitor. Slightly better today. Can be followed as outpatient. (4) Poorly controlled diabetes mellitus Acute E11.65 - TYPE 2 DIABETES MELLITUS WITH HYPERGLYCEMIA Comment/Plan: Continue current medications. Accu-Cheks and sliding scale insulin Case Care Discussed with: Patient, Nursing Staff, Resource Management, Respiratory Therapy, Assistant Professor Of Anthropology
[2016-12-01] MEDS: Levofloxacin 750 mg/150 ml D5W 750 MG/150 ML RTU IV SCH (15:32)
[2016-12-01] MEDS: ENOXAPARIN 40 MG/0.4 ML PFS SQ SCH (17:55)
[2016-12-02] MEDS: GLIPIZIDE 5 MG TAB PO SCH (06:21)
[2016-12-02] MEDS: MetFORMIN 500 MG IMMED RELEASE TAB PO SCH (06:21)
[2016-12-02] MEDS: REGULAR INSULIN 100 UNITS/ML - 3 ML VIAL SQ SCH (06:21)
[2016-12-02] MEDS: NOVOLOG 70/30 MIX 100 UNITS/ML PEN SQ SCH (06:22)
[2016-12-02 07:38] LABS: MPV 7.7 fL (7.4-10.4)
[2016-12-02] MEDS: PROBIOTIC BLEND TAB PO SCH (11:34)
[2016-12-02] MEDS: CEFTRIAXONE 1 GM in D5W 100 ML IV SCH (11:34)
[2016-12-02 13:59] VITALS: BP 127/72; PULSE 84; TEMP 98.1
--- NOTE | 2016-12-02 14:13 | PCM.DCS92 ---
- Final/Secondary Discharge Diagnosis (1) Pyelonephritis Acute N12 - TUBULO-INTERSTITIAL NEPHRITIS, NOT SPCF ACUTE OR CHRONIC Present on Admission: Yes Comment: Due to E coli. Continue IV antibiotics and supportive care. Stressed diabetes control and healthier lifestyle. (2) Nausea & vomiting Acute R11.2 - NAUSEA WITH VOMITING, UNSPECIFIED unspecified non-intractable R11.2 - Nausea with vomiting, unspecified Comment: Nausea has resolved. Continue p.r.n. anti emetics. (3) Anemia Acute D64.9 - ANEMIA, UNSPECIFIED Present on Admission: Yes other cause chronic disease, other D63.8 - Anemia in other chronic diseases classified elsewhere Comment: Monitor. Slightly better today. Can be followed as outpatient. (4) Poorly controlled diabetes mellitus Acute E11.65 - TYPE 2 DIABETES MELLITUS WITH HYPERGLYCEMIA Present on Admission: Yes Comment: Continue current medications. Accu-Cheks and sliding scale insulin Discharge Disposition: Home Discharge Condition: Improved Cognitive Discharge Status: Unimpaired Fuctional Discharge Status: Independent Physician Follow up/Referrals: [facility] [place] [Other] - Keep Scheduled Appt New Prescriptions: Ciprofloxacin HCl [Cipro] 500 mg PO BID #20 tab Discharge Home Medication List Glipizide 5 mg PO DAILY #90 tablet 11/08/16 [Rx Confirmed 11/29/16 Last Taken ] Metformin HCl 500 mg PO BID #180 tab 11/08/16 [Rx Confirmed 11/29/16 Last Taken 11/28/16] Ciprofloxacin HCl [Cipro] 500 mg PO BID #20 tab 12/02/16 [Rx Last Taken Unknown] O2 Device: Room Air Diet at Discharge: As Tolerated Activity: As Tolerated Call Office For: Worsening Symptoms - DC Summary Notes Hospital Course Note:: Discharge summary on patient named PITO FAULKNER admitted to [facility] on 11/29/16 by Favian Mims MD. Date of discharge is []. Total Time: 40 minutes, via foreign language interpreter - Physical Exam Vital Signs: Last Vital Signs Temp 98.1 F 12/02/16 13:58 Pulse 84 12/02/16 13:58 Resp 18 12/02/16 13:58 BP 127/72 12/02/16 13:58 Pulse Ox 98 12/02/16 13:58 Oxygen Pulse Oxygen Saturation 98 O2 Device Room Air Oxygen Flow Rate Fraction of Inspired Oxygen ( FIO2) Constitutional: No apparent distress, Alert (Awake, Fully oriented. Normal and appropriate affect.Well appearing. Well nourished.), Well nourished, Well appearing Oriented to: Time, Person, Place - HEENT Head: Normal (normocephalic, atraumatic.), Other (No cervical lymphadenopathy. No supraclavicular lymphadenopathy. Neck: No palpable mass, supple , trachea midline.) Eye: Normal (pupils equal, reactive to light, and round; EOMI, Sclera white) Oropharynx: Membranes Dry, Other (Poor dentition) ENT EAC: Normal (No oropharyngeal lesions or erythema. Mucous membranes are dry. ) TMJ: Normal Nose: No Symptoms Reported (septum midline, Nares patent, without discharge or bleeding.) - Respiratory/Cardiovascular Respiratory: Normal - CTA (Clear to auscultation bilaterally. No wheezing, rales , rhonchi. Chest wall movements are symmetric. No use of accessory muscles to breathe.) Cardiovascular: Normal - GI Auscultation: Normal (normal active sounds) Palpation: Normal (Soft,non distended,nontender. No hepatosplenomegaly.) Tenderness: Non tender (No rebound or guarding) Landry's Sign: Negative - Musculoskeletal Back: Normal (Non-Tender). negative: CVA Tenderness Extremities: Normal (Normal tone, DP pulses 2+ bilaterally, No cyanosis or edema bilaterally, FROM bilaterally.) - Integumentary Skin: Warm, Dry Lymphatics: Normal (No cervical lymphadenopathy. No supraclavicular lymphadenopathy.) - Neurologic Memory Impaired: Normal Motor Function: Normal Cranial Nerve: Normal Cerebellar: Normal. negative: Ataxia, Past-Pointing, Tremor Mood Description: Other (Depressed quite) Thought: Coherent Perception: Normal (Normal and appropriate affect.)
== END 2016-12-02 15:21 | disposition home or self-care (01) | DRG 690 ==
LOC: ED 11:13 → MPS3 14:00
PROVIDERS: ADMIT Internal Medicine; ATTEND Hospitalist
DX: N10 Acute pyelonephritis (principal); E11.29 Type 2 diabetes mellitus with other diabetic kidney complication; K52.9 Noninfective gastroenteritis and colitis, unspecified; B96.20 Unspecified Escherichia coli [E. coli] as the cause of diseases classified elsewhere; E11.65 Type 2 diabetes mellitus with hyperglycemia; D63.8 Anemia in other chronic diseases classified elsewhere; N28.9 Disorder of kidney and ureter, unspecified; Z79.84 Long term (current) use of oral hypoglycemic drugs
CPT/HCPCS: 36415; 76770; 80048; 80053; 81001; 82043; 82962; 83036; 84443; 85025; 85027; 87040; 87077; 87086; 87186; 87804; 96361; 96372; 96375; 99284; G0237; J0696; J1170; J1650; J1815; J1885; J1956; J2550; J3490; J7060